=== PATIENT | female | born 1985 ===

== ENCOUNTER 2017-02-24 23:07 | Emergency (ER) | payer MEDICAID, OTHER ==
[2017-02-24 23:17] VITALS: PULSE 74
[2017-02-24] MEDS ORDERED: Naproxen 550 mg Tab PO STA (23:36)
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
[2017-02-25] MEDS ORDERED: Naproxen 550 mg Tab PO ONE (00:20)
[2017-02-25 00:54] VITALS: BP 126/70; RESP 20; TEMP 98
[2017-02-25 00:57] VITALS: O2SAT 99
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
== END 2017-02-25 00:53 | disposition home or self-care (01) ==
LOC: C.ER 23:07
DX: S46.912A Strain of unspecified muscle, fascia and tendon at shoulder and upper arm level, left arm, initial encounter (principal); V43.62XA Car passenger injured in collision with other type car in traffic accident, initial encounter; Y92.410 Unspecified street and highway as the place of occurrence of the external cause

== ENCOUNTER 2018-09-26 15:41 | Emergency (ER) | payer MEDICAID, OTHER ==
[2018-09-26 16:00] VITALS: RESP 18
--- NOTE | 2018-09-26 17:29 | C.PDOC ---
History Of Present Illness Patient is a 33 year old female, , LNMP 07/11/18, who presents to the ED for evaluation of diffuse lower abdominal cramping pain that developed 2 days ago with associated vaginal spotting that has become vaginal bleeding since this morning. Patient denies fever, chills, sore throat, CP, SOB, palpitation, significant abdominal pain, vomiting, back pain. Denies previous hx of ectopic . Time Seen by Provider: 09/26/18 16:00 Chief Complaint (Nursing): Female Genitourinary History Per: Patient History/Exam Limitations: no limitations Onset/Duration Of Symptoms: Days (2) Current Symptoms Are (Timing): Still Present Quality Of Discomfort: "Pain" (diffuse abdominal cramping ) Associated Symptoms: denies: Fever, Chills, Vomiting, Back Pain Recent travel outside of the [place]: No Additional History Per: Patient Abnormal Vaginal Bleeding: Yes Last Menstral Period: 07/06/18 Past Medical History Reviewed: Historical Data, Nursing Documentation, Vital Signs Vital Signs: Last Vital Signs Temp 98.2 F 09/26/18 15:56 Pulse 87 09/26/18 15:56 Resp 18 09/26/18 15:56 BP 118/75 09/26/18 15:56 Pulse Ox 98 09/26/18 15:56 - Medical History PMH: No Chronic Diseases Surgical History: No Surg Hx Family History: States: Unknown Family Hx - Social History Hx Tobacco Use: Yes Hx Alcohol Use: Yes Hx Substance Use: No - Immunization History Hx Tetanus Toxoid Vaccination: Yes Hx Influenza Vaccination: No Hx Pneumococcal Vaccination: No Review Of Systems Except As Marked, All Systems Reviewed And Found Negative. Constitutional: Negative for: Fever, Chills Gastrointestinal: Positive for: Abdominal Pain (diffuse lower abdominal cramping ). Negative for: Vomiting Genitourinary: Positive for: Vaginal Bleeding Musculoskeletal: Negative for: Back Pain Physical Exam - Physical Exam Appears: Well, Non-toxic, No Acute Distress Skin: Normal Color, Warm, No Rash Throat: No Erythema Neck: Supple Cardiovascular: Rhythm Regular, No Murmur Respiratory: No Decreased Breath Sounds, No Accessory Muscle Use, No Stridor, No Wheezing Gastrointestinal/Abdominal: Soft, No Tenderness, No Distention, No Guarding, No Rebound Back: No CVA Tenderness Extremity: Normal ROM, No Swelling Neurological/Psych: Oriented x3, Normal Speech ED Course And Treatment - Laboratory Results Result Diagrams: 09/26/18 17:44 O2 Sat by Pulse Oximetry: 98 (on RA) Pulse Ox Interpretation: Normal Progress Note: Plan: Labs. Urinalysis. Urinalysis HCG. US OB . Pt remained stable during the ED evaluation, denies abd. pain now. Afebrile, hemodynamicaly stable. Abd: benign, (-) guarding, (-) rebound, (-) localized tenderness. back: (-) CVA tenderness. Beta quant review (+). US results review - no IUP seen at present time, no oter acute abnormalities noted. results review and discussed with pt. Pt advised to return to ED in 2 days to repeat beta quant. Pt understand and agrees with plan. Disposition Counseled Patient/Family Regarding: Studies Performed, Diagnosis, Need For Followup - Disposition [facility] Disposition: HOME/ ROUTINE Disposition Time: 18:45 Condition: STABLE Additional Instructions: Encourage fluids take tylenol as need for pain return to ED or F/u with OB in 2 days to repeat BETA QUANT Return to Ed at any time if any worsening or new changes. Instructions: Miscarriage Forms: [employer] (Pashto) - Clinical Impression Clinical Impression: Complete - PA / SENIOR PROPERTY MANAGER / Resident Statement MD/DO has examined the patient and agrees with the treatment plan. - Scribe Statement The provider has reviewed the documentation as recorded by the Bo Oliver All medical record entries made by the Scribe were at my direction and personally dictated by me. I have reviewed the chart and agree that the record accurately reflects my personal performance of the history, physical exam, medical decision making, and the department course for this patient. I have also personally directed, reviewed, and agree with the discharge instructions and disposition.
[2018-09-26 17:46] LABS: BASO % 0.6 % (0.0-2.0); EOS # 0.1 K/uL (0.0-0.7); EOS % 1.4 % (0.0-4.0); HEMOGLOBIN 15.3 g/dL (11.0-16.0); LYMPH # 2.3 K/uL (1.0-4.3); LYMPH % 27.8 % (20.0-40.0); MEAN CELL VOLUME 91.5 fL (81.0-99.0); MEAN CORPUSCULAR HEMOGLOBIN 31.4 pg (27.0-31.0); MEAN CORPUSCULAR HGB CONC 34.3 g/dL (33.0-37.0); MEAN PLATELET VOLUME 8.1 fL (7.2-11.7); MONO # 0.2 K/uL (0.0-0.8); NEUT # 5.7 K/uL (1.8-7.0); NEUT % 67.2 % (50.0-75.0); RBC 4.88 Mil/uL (3.80-5.20); RED CELL DISTRIBUTION WIDTH 12.7 % (11.5-14.5); WHITE BLOOD COUNT 8.4 K/uL (4.8-10.8)
[2018-09-26 18:44] LABS: HCG,QUALITATIVE URINE POSITIVE (NEGATIVE)
[2018-09-26 18:46] LABS: SQUAMOUS EPITHIAL 2 /hpf (0-5); URINE BACTERIA RARE (<OCC); URINE BILIRUBIN NEGATIVE (NEGATIVE); URINE BLOOD 3+ (NEGATIVE); URINE CLARITY Clear (Clear); URINE COLOR Yellow (YELLOW); URINE GLUCOSE (UA) NORMAL (Normal); URINE LEUKOCYTE ESTERASE NEG Leu/uL (Negative); URINE PROTEIN NEGATIVE (NEGATIVE); URINE UROBILINOGEN NORMAL mg/dL (0.2-1.0)
--- NOTE | 2018-09-26 18:51 | US ---
Date of service: 09/26/2018 HISTORY: vaginal bleeding COMPARISON: None available. TECHNIQUE: FINDINGS: UTERUS: Measures 9.3 x 5.8 x 6.3 cm. Retroverted and bulky. No fibroid or other mass lesion seen. There is a 2 mm nonspecific calcification in the posterior wall. ENDOMETRIUM: Measures 12 mm in diameter. The central endometrial echo complex is heterogeneous with linear hypoechoic areas which may represent fluid. CERVIX: No cervical abnormality identified. RIGHT OVARY: Measures 3.7 x 2.0 x 2.6 cm. No solid mass. Normal flow. LEFT OVARY: Measures 3.3 x 2.2 x 2.9 cm. No solid mass. Normal flow. FREE FLUID: No significant free fluid noted. OTHER FINDINGS: None. IMPRESSION: Thick heterogeneous central endometrial echo complex with trace fluid which may represent blood clots with the stated clinical history of vaginal bleeding. No evidence for intrauterine gestational sac.
[2018-09-26 19:16] VITALS: BP 120/64; PULSE 79; TEMP 98; O2SAT 99
== END 2018-09-26 19:15 | disposition home or self-care (01) ==
LOC: C.ER 15:41
DX: O03.9 Complete or unspecified spontaneous abortion without complication (principal)